=== PATIENT | male | born 1955 | race Caucasian/White ===

== ENCOUNTER 2016-11-23 18:47 | Emergency (ER) | payer BC ==
[~2016-11-23] VITALS: Ht 180.3 cm; Wt 83.9 kg
[2016-11-23 20:44] LABS: BASOPHIL# 0.1 X10e3 (0-0.3); BASOPHIL% 0.6 % (0-2.5); EOSINOPHIL# 0.3 X10e3 (0-0.7); EOSINOPHIL% 2.9 % (0.0-7.0); HEMATOCRIT 40.1 % (38.0-50.0); HEMOGLOBIN 13.8 gm/dL (13.0-16.0); LYMPHOCYTE# 1.6 X10e3 (1.0-3.5); LYMPHOCYTE% 17.1 % (17.0-45.0); MEAN CELL VOLUME 97.2 FL (83-96); MEAN CORPUSCULAR HEMOGLOBIN 33.5 PG (28-34); MEAN CORPUSCULAR HGB CONC 34.4 g/dL (30-36); MEAN PLATELET VOLUME 8.1 FL (6.5-11.5); MONOCYTE# 0.6 X10e3 (0-1.0); MONOCYTE% 6.8 % (3.0-12.0); NEUTROPHIL# 6.9 X10e3 (1.5-7.1); NEUTROPHIL% 72.6 % (40-75); PLATELET COUNT 168 X10e3 (140-420); RED BLOOD COUNT 4.13 X10e (3.90-5.60); RED CELL DISTRIBUTION WIDTH 13.5 % (11.0-15.5); WHITE BLOOD COUNT 9.4 X10e3 (4.0-10.5)
[2016-11-23 20:45] LABS: DIFF IND YES
[2016-11-23 21:00] LABS: BUN/CREATININE RATIO 17.14; CREATININE SERUM 0.7 mg/dL (0.6-1.4); GLOM FILT RATE Estimated 101.2 mL/min (>60); POTASSIUM 3.7 mmol/L (3.5-5.1)
[2016-11-23 21:14] LABS: PLATELET ESTIMATE NORMAL (NORMAL)
== END 2016-11-24 00:38 | disposition home or self-care (01) ==
LOC: CED 18:47
PROVIDERS: Nurse Practitioner Family
DX: T81.4XXA Infection following a procedure, initial encounter (principal); F17.200 Nicotine dependence, unspecified, uncomplicated
CPT/HCPCS: 36415; 80048; 85025; 87040; 96365; 96366; 99284; J3370